=== PATIENT | female | born 1995 | race Caucasian/White ===

== ENCOUNTER 2022-03-20 12:22 | Emergency (ER) | payer MEDICAID ==
[~2022-03-20] VITALS: Ht 145 cm; Wt 88.1 kg
[2022-03-20 12:51] VITALS: BP 152/104
--- NOTE | 2022-03-20 12:58 | NUR ---
Kulwindre sharma in [facility] - 03/20/22 at 1301 by [email or web address] PT AMB TO BED 6.
--- NOTE | 2022-03-20 13:01 | NUR ---
PATIENT AMBULATED TO BED 5.
--- NOTE | 2022-03-20 14:15 | NUR ---
26YO FEMALE PT C/O INCREASED VAGINAL DISCHARGE AND DYSURIA [id number]. REPORTS VAGINAL YELLOW DISCHARGE , ODOR AND ITCYNESS AND THAT INITIALLY STARTED 10 MONTHS AGO. EXPRESSED CONCERN FOR STI AND STATES SEXUAL PARTNER WAS +CLAMYDIA. PT HAS NOT BEEN SEEN FOR SYMPTOMS DUE TO CURRENT PROGRAM ENROLLMENT. DENIES N/V/D, CHEST PAIN, SOB, FEVER OR CHILLS. PT AAOX4, HOB POSITIONED PER COMFORT. HX:ASTHMA ALLERGIES:PENICILLIN
--- NOTE | 2022-03-20 14:20 | NUR ---
Female Aircraft Engineer accompanied female patient for Pelvic Exam.
--- NOTE | 2022-03-20 14:23 | NUR ---
26/F PRESENTS TO ED WITH C/O URINARY BURNING X1 WEEK AND YELLOW ODOROUS VAGINAL DISCHARGE. PATIENT DENIES CONCERNS FOR STDS, DENIES FEVER, CHILLS, N/V/D OR ABDOMINAL PAIN. DENIES TAKING MEDS FOR SYMPTOMS.
[2022-03-20 14:26] LABS: BILIRUBIN,URINE NEGATIVE (NEGATIVE); BLOOD, URINE 1+ (NEGATIVE); COLOR,URINE YELLOW (YELLOW); LEUKOCYTE ESTERASE ,URINE 2+ (NEGATIVE); NITRITE, URINE NEGATIVE (NEGATIVE); UGLUCOSE TRACE (NEGATIVE)
[2022-03-20 14:32] LABS: APPEARANCE,URINE CLOUDY (CLEAR)
[2022-03-20 14:55] LABS: RBC,URINE 11-20 (MOD) /HPF (0-5)
[2022-03-20 14:56] LABS: WBC,URINE 80-100 /HPF (0-5)
[2022-03-20] MEDS ORDERED: cefTRIAXone 500 MG in LIDOCAINE MPF 1% 1 ML IM ONE (15:05)
[2022-03-20] MEDS ORDERED: LIDOCAINE MPF 1% 5 ML ONE (15:19)
[2022-03-20] MEDS ORDERED: cefTRIAXone 500 MG VIAL ONE (15:19)
[2022-03-20] MEDS ORDERED: DOXY-690 PO (16:01)
[2022-03-20] MEDS ORDERED: NITR100C7 PO (16:01)
[2022-03-20] MEDS ORDERED: ALBU0.0912 INH (16:01)
[2022-03-20] MEDS ORDERED: FLONAS NS (16:01)
[2022-03-20] MEDS ORDERED: IBUP-2213 PO (16:01)
[2022-03-20 16:11] VITALS: BP 120/81
--- NOTE | 2022-03-20 16:11 | NUR ---
Patient discharged with v/s stable. Written and verbal after care instructions FOR UTI, GONORRHEA, CHLAMYDIA AND VAGINITIS given and explained. Patient alert, oriented and verbalized understanding of instructions. Ambulatory with steady gait. All questions addressed prior to discharge. ID band removed. Patient advised to follow up with PMD. Rx of ALBUTEROL SULFATE,VIBRAMYCIN, FLONASE NASAL, IBUPROFEN AND MACROBID given. Opportunity to ask questions provided and answered.
== END 2022-03-20 16:11 | disposition home or self-care (01) ==
LOC: MED 12:22
DX: N76.0 Acute vaginitis (principal); N39.0 Urinary tract infection, site not specified
CPT/HCPCS: 81001; 81025; 87070; 87086; 87205; 87210; 96372; 99283; J0696; J2001

== ENCOUNTER 2022-11-11 17:59 | Emergency (ER) | payer MEDICAID ==
[~2022-11-11] VITALS: Ht 147.3 cm; Wt 98.0 kg
[~2022-11-11 17:59] MED LIST: ALBU0.0912 INH; DOXY-690 PO; FLONAS NS; IBUP-2213 PO; NITR100C7 PO
[2022-11-11 18:12] VITALS: BP 135/86; PULSE 101; RESP 20; TEMP 98; O2SAT 97
[2022-11-11] MEDS ORDERED: LIDOCAINE MPF 1% 10 MG/ML VIAL INJ ONE (18:40)
--- NOTE | 2022-11-11 18:42 | NUR ---
PT TO BED 01 AMBULATORY
[2022-11-11] MEDS ORDERED: IBUP-2213 PO (19:07)
[2022-11-11] MEDS ORDERED: SULF-59 PO (19:07)
--- NOTE | 2022-11-11 19:15 | NUR ---
at performing I&D procedure. Pt tolerating procedure well.
[2022-11-11 19:21] VITALS: BP 121/64; PULSE 95; RESP 17; TEMP 98.1; O2SAT 98
--- NOTE | 2022-11-11 19:21 | NUR ---
Patient discharged with v/s stable. Written and verbal after care instructions given and explained. Patient alert, oriented and verbalized understanding of instructions. Ambulatory with steady gait. All questions addressed prior to discharge. ID band removed. Patient advised to follow up with PMD. Rx of Motrin, Bactrim given. Patient educated on indication of medication including possible reaction and side effects. Opportunity to ask questions provided and answered.
== END 2022-11-11 19:21 | disposition home or self-care (01) ==
LOC: MED 17:59
DX: L02.211 Cutaneous abscess of abdominal wall (principal); L03.311 Cellulitis of abdominal wall; Z88.0 Allergy status to penicillin; Z79.899 Other long term (current) drug therapy
CPT/HCPCS: 10060; 99284; J2001; 99283

== ENCOUNTER 2022-12-18 11:22 | Emergency (ER) | payer MEDICAID ==
[~2022-12-18] VITALS: Ht 144.8 cm; Wt 97.1 kg
[~2022-12-18 11:22] MED LIST changes: +SULF-59 PO
[2022-12-18 11:38] VITALS: BP 125/60; PULSE 78; RESP 20; TEMP 98; O2SAT 99
[2022-12-18] MEDS ORDERED: IBUP-2213 PO (12:38)
[2022-12-18] MEDS ORDERED: SULF-59 PO (12:38)
[2022-12-18] MEDS ORDERED: ALBU0.0912 IH (12:39)
[2022-12-18 12:45] VITALS: BP 111/67; PULSE 74; RESP 17; O2SAT 98
--- NOTE | 2022-12-18 12:45 | NUR ---
Patient discharged with v/s stable. Written and verbal after care instructions given and explained. Patient verbalized understanding. Ambulatory with steady gait. All questions addressed prior to discharge. Advised to follow up with PMD.
== END 2022-12-18 12:45 | disposition home or self-care (01) ==
LOC: MED 11:22
DX: L03.112 Cellulitis of left axilla (principal); J45.909 Unspecified asthma, uncomplicated; Z88.0 Allergy status to penicillin; Z79.899 Other long term (current) drug therapy
CPT/HCPCS: 99283